=== PATIENT | female | born 1985 | race Caucasian/White ===

== ENCOUNTER 2019-05-22 00:10 | Emergency (ER) | payer SELFPAY ==
[~2019-05-22] VITALS: Ht 167.6 cm; Wt 65.8 kg
--- NOTE | 2019-05-22 00:23 | NUR ---
PT BIBSELF WITH C/O LEFT WRIST PAIN S/P FALL WALKING DOWN STAIRS. A/OX4. PRIMARY LANGUAGE PORTUGUESE. FRIEND AT BEDSIDE. BREATHING EVEN AND UNLABORED. PLACED ON POLE CLIMBER AND PULSE OX.
[2019-05-22 01:17] VITALS: BP 123/75
[2019-05-22] MEDS ORDERED: HYDROCODONE/APAP 5/325MG 1 EACH TABLET ONE (01:28)
[2019-05-22] MEDS ORDERED: HYDROCODONE/APAP 5/325MG 1 EACH TABLET PO ONE (01:30)
--- NOTE | 2019-05-22 01:33 | NUR ---
Patient discharged to home in stable condition. Written and verbal after care instructions given. Patient verbalizes understanding of instruction. PT ambulatory with a steady gait.
== END 2019-05-22 01:37 | disposition home or self-care (01) ==
LOC: ER 00:16
DX: S63.592A Other specified sprain of left wrist, initial encounter (principal); W01.0XXA Fall on same level from slipping, tripping and stumbling without subsequent striking against object, initial encounter; Y93.89 Activity, other specified; Y92.89 Other specified places as the place of occurrence of the external cause; Y99.8 Other external cause status
CPT/HCPCS: 73110